=== PATIENT | male | born 1985 | race Caucasian/White ===

== ENCOUNTER 2017-06-03 16:10 | Emergency (ER) | payer OTHER ==
[2017-06-03] MEDS: LIDOCAINE WITH 8.4% SOD BICARB 3 ML DISP.SYRIN. INJ (16:47)
[2017-06-03] MEDS: DIPHTH,PERTUSS(ACELL),TET TOX 0.5 ML DISP.SYRIN. VAX IM (16:47)
== END 2017-06-03 17:45 | disposition home or self-care (01) ==
LOC: ER 16:10
DX: S41.112A Laceration without foreign body of left upper arm, initial encounter (principal); W26.8XXA Contact with other sharp object(s), not elsewhere classified, initial encounter; Y93.89 Activity, other specified; Y99.8 Other external cause status; Y92.89 Other specified places as the place of occurrence of the external cause
CPT/HCPCS: 12002; 90471; 90715; 99284-25

== ENCOUNTER 2017-09-26 00:58 | Emergency (ER) | payer SELFPAY, OTHER ==
[2017-09-26] MEDS: LIDOCAINE 2% 20 ML VIAL. IJ (01:47)
== END 2017-09-26 01:56 | disposition home or self-care (01) ==
LOC: ER 00:58
DX: L02.413 Cutaneous abscess of right upper limb (principal)
CPT/HCPCS: 10060; 99283; J2001